=== PATIENT | male | born 1945 | race Caucasian/White ===

== ENCOUNTER → 2019-01-15 10:33 | Outpatient (CLI) | payer OTHER, SELFPAY ==
--- NOTE | 2019-01-15 | DI.CT.S_ITS ---
PROCEDURE: CT CHEST HIGH RESOLUTION INDICATIONS: INTERSTITIAL LUNG DISEASE TECHNIQUE: Noncontrast 1.0 and 5.0 mm thick contiguous axial sections from the pulmonary apex to the posterior costophrenic angles, with 7 mm thick coronal and sagittal MIP reformats. 1 mm thick dynamic expiratory images acquired through the upper, mid, and lower lungs. 1.0 mm thick axial sections acquired from the sarah to the posterior costophrenic angles in the prone end-inspiration position. For radiation dose reduction, the following was used: automated exposure control, adjustment of mA and/or kV according to patient size. COMPARISON: [place], [place], [place] PET CT FUSION SKULL 2 THIGH, 06/04/2018, 16:49. [place], PET/CT SKULL BASE TO MID THIGH, 10/30/2017, 9:40. FINDINGS: Image quality: Excellent. Lungs: The lungs demonstrate biapical areas of opacity the largest on the right measuring 36 mm in transverse dimension. These have markedly increased in size and become more focal and nodular in appearance when compared to 06/14/18. There are mild areas of scattered previously noted nodular opacity in the posterior right upper lobe is not well seen on today's exam. There are areas of streaky opacity identified along the left major fissure and lingula region appearing unchanged. Linear areas of opacity are noted within the bases likely reflective of scarring. Subpleural nodule in the left lower lobe is unchanged. It is noted this did not demonstrate hypermetabolic activity. Emphysematous changes are prominent. Pleura: No pleural effusions or pneumothorax. Mediastinum: Heart size is normal. No pericardial effusion. Thoracic aorta and central pulmonary arteries are normal in size. Esophagus is normal in caliber. Bones and chest wall: No suspicious bony lesions. No vertebral body compression fractures. Abdomen: Visualized upper abdominal solid organs and bowel loops appear normal. IMPRESSION: 1. Interval development of increased areas of nodular and streaky opacity within the apices, appearing markedly progressive compared to 06/04/18. While this could be quality assurance representative of significant interval scarring, underlying etiology such as infection or neoplasm cannot be excluded. Short interval followup in 3 months is recommended to document stability. Alternately, PET scan may be obtained. Dictated by: Joslyn Jewell M.D. on 01/15/2019 at 17:49 Approved by: Joslyn Jewell M.D. on 01/15/2019 at 17:54
== END ==
PROVIDERS: PCP Family Medicine; Visit Provider Family Medicine
DX: J84.9 Interstitial pulmonary disease, unspecified (principal)
CPT/HCPCS: 71250

== ENCOUNTER → 2019-05-21 11:09 | Outpatient (CLI) | payer OTHER, SELFPAY ==
--- NOTE | 2019-05-21 | DI.CT.S_ITS ---
PROCEDURE: CT CHEST WO CON INDICATIONS: other disorders of lung TECHNIQUE: Noncontrast 5 mm thick sections acquired from the pulmonary apices to the posterior costophrenic angles. 1 mm lung window, 5 mm thick coronal and sagittal and 7 mm axial MIP reformats were then acquired. For radiation dose reduction, the following was used: automated exposure control, adjustment of mA and/or kV according to patient size. COMPARISON: [facility], CT, CT CHEST HIGH RESOLUTION, 01/15/2019, 10:41. INDICATIONS: other disorders of lung FINDINGS: Prominent central lobular and also superimposed bullous emphysema is present indicating likelihood of long-standing smoking history. Bullous emphysema is most pronounced along the lateral left upper lobe, and much less evident elsewhere. The lung apices were identified as demonstrating significantly increased confluent lung parenchyma and pleural scarring or infection/neoplasm on the most recent comparison study from 01/15/19. This pattern has improved, appreciably. An inflammatory component therefore appears to have been present in December of this year. Moderate pleural and parenchymal radiodensity in those areas persists, however. Additionally, there are several areas of linear scarring or atelectasis at each lung base, greater on the left than the right, and a rounded 1 cm pleural-based nodule at the left lower lobe (series 3 image 300) is again seen. IMPRESSION: 1. Long-standing smoking history likely is present in this patient resulting in both centrilobular and superimposed bullous emphysema, left greater than right. 2. Improvement in lung parenchymal and pleural radiodensities over each apex, with reference to the study from December of this year. This indicates presence of an inflammatory component to the apical airspace disease, arguing strongly against neoplasm as the underlying cause. 3. There is a 1 cm diameter rounded radiodensity at the periphery of the left lower lobe, postero-laterally. This was previously present, has not significantly changed, no new nodule has developed, but followup CT scanning utilizing noncontrast technique is recommended in 1 year from now to confirm stability of appearance over time given the high risk patient category. Dictated by: Angel Galaviz M.D. on 05/21/2019 at 13:51 Approved by: Angel Galaviz M.D. on 05/21/2019 at 13:53
== END ==
PROVIDERS: PCP Family Medicine; Visit Provider Family Medicine
DX: J43.2 Centrilobular emphysema (principal); R91.1 Solitary pulmonary nodule
CPT/HCPCS: 71250